=== PATIENT | female | born 1975 | race Caucasian/White ===

== ENCOUNTER → 2021-02-16 12:47 | Outpatient (CLI) | payer BC, SELFPAY ==
--- NOTE | ~2021-02-16 | US_ITS ---
EXAMINATION: US pelvic complete w TV DATE: 02/16/2021 13:15 INDICATION: Uterine mass Comparison:CT dated 09/12/2015 TECHNIQUE: Multiple transabdominal and endovaginal sonographic images of the pelvis performed. FINDINGS: The uterus measures 9.3 x 3.5 x 3.9 cm. There are multiple uterine fibroids, largest measur ing 7.6 x 7 x 6.8 cm. The endometrial complex measures 6 mm. The ovaries are not visualized. There is no free fluid in the pelvis. There are no abnormal masses seen on either side. IMPRESSION: 1. Enlarged fibroid uterus. Reviewed, dictated and finalized at location A. MAN IMPRESSION: 1. Enlarged fibroid uterus.
== END ==
DX: N85.8 Other specified noninflammatory disorders of uterus (principal); D25.9 Leiomyoma of uterus, unspecified
CPT/HCPCS: 76830; 76856

== ENCOUNTER 2021-03-03 15:42 | Outpatient (CLI) | payer BC, SELFPAY ==
--- NOTE | ~2021-03-03 | MM_ITS ---
EXAMINATION: MM screening franc BI w anuel HISTORY: Screening mammogram TECHNIQUE: Craniocaudal and mediolateral oblique 3-D tomosynthesis images were obtained and synthetic 2-D images were generated. CAD analysis was submitted and interpreted. COMPARISON: 09/22/2015 BREAST PARENCHYMAL COMPOSITION: There are scattered areas of fibroglandular density. FINDINGS: There is no evidence of suspicious mass, calcification, or architectural distortion to sugg est malignancy in either breast. There has been no suspicious interval change. IMPRESSION: 1. No mammographic evidence of malignancy. 2. Recommend routine screening mammography in one year. BI-RADS Category 1: Negative Reviewed, dictated and finalized at location A. ER ARTISAN
== END 2021-03-03 15:43 | disposition home or self-care (01) ==
LOC: ANHIMG 15:44
DX: Z12.31 Encounter for screening mammogram for malignant neoplasm of breast (principal)
CPT/HCPCS: 77063; 77067

== ENCOUNTER → 2022-06-25 10:57 | Outpatient (CLI) | payer BC, SELFPAY ==
--- NOTE | ~2022-06-25 | XR_ITS ---
Lumbosacral Spine: AP and lateral views Clinical History: Pain Findings: The normal lordotic curve is maintained. The vertebral bodies and posterior elements are i ntact. The intervertebral disc spaces are preserved. The sacroiliac joints are normally outlined. Impression: No significant abnormality. Reviewed, dictated and finalized at [facility]. Impression: No significant abnormality.
--- NOTE | ~2022-06-25 | XR_ITS ---
AP and lateral views of the right hip Clinical history: Pain Findings: No acute fracture or dislocation is seen. Osseous alignment is anatomic. The right hip and visualized right SI joint are preserved. Soft tissues are unremarkable. Impression: No significant abnormality is seen. Reviewed, dictated and finalized at [facility]. Impression: No significant abnormality is seen.
== END ==
PROVIDERS: PCP Internal Medicine; Visit Provider Nurse Practitioner Family
DX: M54.50 Low back pain, unspecified (principal); M25.551 Pain in right hip
CPT/HCPCS: 72100; 73502

== ENCOUNTER 2022-09-01 15:53 | Outpatient (CLI) | payer BC, SELFPAY ==
--- NOTE | ~2022-09-01 | XR_ITS ---
EXAMINATION: XR chest 2V Exam Date/Time: 09/01/2022 16:30 CDT HISTORY: PRODUCTIVE COUGH W/ PAINFUL INSPIRATION 10 DAYS. Comparison: None. RESULT: Lines, tubes, and devices: Biopsy clip in the left breast. Lungs and pleura: Clear. Cardiomediastinal silhouette: Normal. Other: No acute osseous or upper abdominal finding. IMPRESSION: No acute cardiopulmonary process. Reviewed, dictated and finalized at location K.
== END 2022-09-01 15:54 | disposition home or self-care (01) ==
LOC: CHSIMG 15:56
PROVIDERS: PCP Internal Medicine; Visit Provider Nurse Practitioner Family
DX: J06.9 Acute upper respiratory infection, unspecified (principal)
CPT/HCPCS: 71046

== ENCOUNTER 2023-07-27 00:02 | Day surgery (SDC) | payer BC, SELFPAY ==
[2023-07-18 15:29] VITALS: BMI 35.6
[2023-07-27 09:22] VITALS: BP 132/102; PULSE 82; RESP 22; TEMP 36.2; O2SAT 100; BMI 35.3
[2023-07-27] MEDS: LACTATED RINGERS 1,000 ML 150 ML IV CONT (09:25)
--- NOTE | 2023-07-27 09:48 | P.PNAN_ITS ---
Anes - Initial Pre Proc Eval Procedure: Operation Date: 07/27/23 10:30 Proposed Procedures p Colonoscopy - Amanuel Mcclendon MD Date/Time: 07/27/23 09:48 Surgeon: Amanuel Mcclendon MD Pre Op Diagnosis: Change in bowel habit Patient Data Age: 47 Gender: F Height: 1.68 m Weight: 99.2 kg Last Vital Signs Temp 97.2 F L 07/27/23 09:22 Pulse 82 07/27/23 09:22 Resp 22 H 07/27/23 09:22 BP 132/102 H 07/27/23 09:22 Pulse Ox 100 07/27/23 09:22 O2 Del Method Room Air 07/27/23 09:22 Allergies Allergy/AdvReac Type Severity Reaction Status Date / Time No Known Allergies Allergy Verified 07/27/23 09:21 Home Medications Medication Instructions Recorded Confirmed Type methylphenidate HCl 20 mg tablet 20 mg PO DAILY 07/18/23 07/27/23 History Patient hx anesthesia problems: none Family hx anesthesia problems: none Results Review: All pre-operative results and documents have been reviewed as part of the pre- operative evaluation. PMFSH Social History Social History Living arrangements: with family Spiritual care concerns: No Anes - Eval Final PreProcedure Day of Procedure 07/27/23 09:48 Patient weight: normal Heart: regular rate and rhythm Lungs: clear to auscultation Airway: Mallampati scale class II Neurological: alert and oriented Last oral intake: >/= 8 hours ASA classification: II Emergent: no Anesthetic plan: proceed Anesthesia type and monitoring: general GIVS and standard monitoring Results Review: All pre-operative results and documents have been reviewed as part of the pre- operative evaluation. Informed Consent: The patient's anesthetic plan and its attendant risks and benefits were discussed with the patient/family/POA. Questions were solicited and answers provided to the satisfaction of the patient/family/POA.
--- NOTE | 2023-07-27 10:10 | PM.HPGS ---
History of Present Illness History of Present Illness Consent: Risks, benefits, and alternatives have been discussed and questions answered. Patient agrees to proceed with procedure. Chief complaint: colon screening Narrative: Nichelle Chandler is a 47 year old female here for screening colonoscopy, last one about 15 years ago. Also noted that has to use restroom more often but denies diarrhea. Review of Systems Review of Systems: All systems reviewed & are unremarkable except as noted in HPI and below PMFSH Past Medical History Medical History (Updated 07/27/23 @ 10:11 by Amanuel Mcclendon MD) Colon cancer screening Social History Social History Living arrangements: with family Spiritual care concerns: No Meds Home Medications and Allergies Home Medications Medication Instructions Recorded Confirmed Type methylphenidate HCl 20 mg tablet 20 mg PO DAILY 07/18/23 07/27/23 History Allergies Allergy/AdvReac Type Severity Reaction Status Date / Time No Known Allergies Allergy Verified 07/27/23 09:21 Vital Signs Vital Signs - 24 hr 07/27/23 09:22 Temperature 97.2 F L Pulse Rate 82 Respiratory Rate 22 H Blood Pressure 132/102 H Pulse Oximetry 100 Oxygen Delivery Room Air Exam Const: General: comfortable and no acute distress HENMT: Face/Nose/Sinus: Normal nares present Eyes: General: appearance normal, both eyes and all related structures Neck: Neck: no JVD Resp: Auscultation: clear to auscultation bilaterally Cardio: Rate: regular rate Rhythm: regular rhythm GI: Inspection: non-distended GI Palp: Yes Soft to palpation Skin: General skin exam: normal color Neuro: General: gait normal Speech: normal speech Extrem: General: normal to inspection Psych: Mental Status: mental status grossly normal Assessment and Plan Assessment and plan (1) Colon cancer screening: Code(s): Z12.11 - Encounter for screening for malignant neoplasm of colon Status: Acute Assessment and Plan: colonoscopy
[2023-07-27 10:24] VITALS: BP 123/61; PULSE 92; RESP 21; O2SAT 100
[2023-07-27 10:34] VITALS: BP 114/67; PULSE 78; RESP 17; O2SAT 98
[2023-07-27 10:44] VITALS: BP 130/86; PULSE 75; RESP 16; O2SAT 99
== END 2023-07-27 11:00 | disposition home or self-care (01) ==
PROVIDERS: PCP Internal Medicine; Visit Provider Internal Medicine Gastroenterology
PROC: 0DJD8ZZ Inspection of Lower Intestinal Tract, Via Natural or Artificial Opening Endoscopic (ICD-10-PCS; CPT 45378; principal; 2023-07-27 10:30)
DX: Z12.11 Encounter for screening for malignant neoplasm of colon (principal); K64.8 Other hemorrhoids
CPT/HCPCS: 45378; J2704; J7120

== ENCOUNTER 2023-09-27 14:33 | Outpatient (CLI) | payer BC, SELFPAY ==
--- NOTE | ~2023-09-27 | MR_ITS ---
EXAMINATION: MR pelvis wo con DATE: 09/27/2023 16:04 INDICATION: Sacrococcygeal pain and lower extremity numbness TECHNIQUE: Magnetic resonance imaging (MRI) of the pelvis was performed without intravenous contrast. Sequences included axial, sagittal and coronal T1-weighted FSE and T2-weighted FS FSE. COMPARISON: CT abdomen pelvis dated 09/12/2015 FINDINGS: Bone alignment is normal. No fracture or osteonecrosis. Mild to moderate osteoarthritis at the bilate ral sacroiliac joints. There is mild increased fluid signal associated with chronic subarticular scle rosis along the inferior sacral side of the bilateral sacroiliac joint spaces. Tiny spicule at the do rsal tip of the coccyx. There is minimal increased fluid signal at the first interphalangeal disc spa ce. No hip joint effusions, bursitis or other abnormal fluid collections. There is a transverse linea r scar along the anterior pelvic wall likely related to prior section. The uterus is not irina ntified and has likely been surgically resected. Decompressed bladder and right ovary are unremarkabl e. 1 cm T2 hyperintense left ovarian cyst/follicle. This most portion of the bowels are unremarkable. IMPRESSION: 1. Tiny dorsal spiculated at the tip of the coccyx and minimal increased signal along the first inter coccygeal disc space, both findings which can be seen with coccydynia. 2. 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 Reviewed, dictated and finalized at location A. IMPRESSION: 1. Tiny dorsal spiculated at the tip of the coccyx and minimal increased signal along the first intercoccygeal disc space, both findings which can be seen wit h coccydynia. 2. 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
--- NOTE | ~2023-09-27 | MR_ITS ---
EXAMINATION: MR lumbar spine wo con DATE: 09/27/2023 15:35 INDICATION: Low back pain TECHNIQUE: Magnetic resonance imaging (MRI) of the lumbar spine was performed without intravenous con trast. Sequences included sagittal T2-weighted FSE, sagittal T2-weighted FS FSE, sagittal T1-weighted FSE, and axial T2-weighted FSE. COMPARISON: None FINDINGS: Alignment is normal. Vertebral body heights are normal. Normal marrow signal. Disc heights are inna l. The conus medullaris terminates at L2. There is normal signal in the caudal spinal cord. Paraverte bral soft tissues are unremarkable. The following disc levels are specifically discussed: T12-L1: The disc does not extend beyond the endplate margin. There is mild bilateral facet joint oste oarthritis. There is no neural foraminal stenosis. There is no central canal stenosis. L1-L2: The disc does not extend beyond the endplate margin. There is mild bilateral facet joint osteo arthritis. There is no neural foraminal stenosis. There is no central canal stenosis. L2-L3: The disc does not extend beyond the endplate margin. There is mild bilateral facet joint osteo arthritis. There is no neural foraminal stenosis. There is no central canal stenosis. L3-L4: Small disc protrusions at the bilateral foraminal zones. There is mild bilateral facet joint o steoarthritis. There is mild bilateral neural foraminal stenosis. There is no central canal stenosis. L4-L5: Small bilateral foraminal zone disc protrusions. There is mild bilateral facet joint osteoarth ritis. There is mild bilateral neural foraminal stenosis. There is no central canal stenosis. L5-S1: Disc is mildly bulging. There is mild bilateral facet joint osteoarthritis. There is no neural foraminal stenosis. There is no central canal stenosis. IMPRESSION: 1. Minimal lumbar spondylosis with multilevel mild lumbar facet osteoarthritis. Reviewed, dictated and finalized at location A.
== END 2023-09-27 14:34 ==
LOC: GOSHIMG 14:34
PROVIDERS: PCP Internal Medicine; Visit Provider Internal Medicine
DX: M53.3 Sacrococcygeal disorders, not elsewhere classified (principal)
CPT/HCPCS: 72148; 72195

== ENCOUNTER 2024-01-24 08:49 | Outpatient (RCR) | payer BC, SELFPAY ==
--- NOTE | 2024-01-24 11:39 | OPREHPOC ---
Outpatient Therapy Plan of Care This is a Multidisciplinary Plan of Care that may contain components documented by all disciplines (PT, OT, and ST.) PT Problem 1 PT Problem #1 Knowledge Deficit PT Goal 1 Goal / Goal Update The patient will be independent in a home exercise program. Target Visit 4 PT Problem 2 PT Problem #2 Pain PT Goal 1 Goal / Goal Update The patient will report no greater than 3/10 coccyx pain with sitting for 2+ hours while working. Target Visit 10 PT Problem 3 PT Problem #3 Impaired Functional Mobil PT Goal 1 Goal / Goal Update The patient will demonstrate 15% or less self perceived disability per the Back Index questionnaire. Target Visit 10 PT Problem 4 PT Problem #4 Impaired Strength PT Goal 1 Goal / Goal Update The patient will demonstrate at least 4/5 bilateral hip strength. The patient will demonstrate st least 4-/5 upper and lower abdominal strength. Target Visit 10
--- NOTE | 2024-01-24 11:39 | PTOPEVAL1 ---
Assessment and note entered by Greta Moseley, PT Evaluation Information Assessment Status Evaluation ICD-10 Condition Codes (PT) Pain in low back M54.50 Other ICD-10 Condition Codes ( M53.3 PT) Onset 01/02/24 Subjective Information Nichelle Mckinney reports she started having pain in her tailbone over the last few years. She notes the pain is gradually getting worse and she has to use a pad to sit on. 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 She notes she sits for work all day and occasionally gets tingling in her feet when standing for long periods and when driving without a pad to sit on. She denies an injury prior to the onset of pain. She finally had a MRI that showed her coccyx is bent the wrong way. Reported Pain Level Pain Score 7: Self Report Assessment PT Clinical Summary Nichelle Mckinney presents with coccyx pain with an insidous onset with worsening pain over the last year. 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 She objectively demonstrates decreased hamstring and piriformis flexibility, tenderness over the left piriformis, decreased left > right hip strength, decreased core strength , and decreased functional abilities. She will benefit from skilled PT to address these limitations. Plan of Care Interventions Electrical Stimulation,Hot Pack/Cold Pack,Manual Therapy,Neuro Re-education,Patient/Caregiver Educati,Therapeutic Activities,Therapeutic Exercise PT Services Indicated Yes Treatment Frequency and 2 times a week for 10 visits Duration These treatments will address the objective and functional deficits as defined above. The patient will be advanced safely and appropriately in order for the patient to progress towards his/her prior level of function. Additional exercises will be introduced and as well as a comprehensive home exercise program upon discharge, if needed, ?to ensure carryover of functional gains achieved in the clinic. This treatment plan has been reviewed and agreement upon by the patient.
--- NOTE | 2024-02-02 17:31 | OPREHPOC ---
Outpatient Therapy Plan of Care This is a Multidisciplinary Plan of Care that may contain components documented by all disciplines (PT, OT, and ST.) PT Problem 1 PT Problem #1 Knowledge Deficit PT Goal 1 Goal / Goal Update The patient will be independent in a home exercise program. Target Visit 4 Progress Met PT Problem 2 PT Problem #2 Pain PT Goal 1 Goal / Goal Update The patient will report no greater than 3/10 coccyx pain with sitting for 2+ hours while working. Target Visit 10 Progress Not Met PT Problem 3 PT Problem #3 Impaired Functional Mobil PT Goal 1 Goal / Goal Update The patient will demonstrate 15% or less self perceived disability per the Back Index questionnaire. Target Visit 10 Progress Not Met PT Problem 4 PT Problem #4 Impaired Strength PT Goal 1 Goal / Goal Update The patient will demonstrate at least 4/5 bilateral hip strength. The patient will demonstrate st least 4-/5 upper and lower abdominal strength. Target Visit 10 Progress Not Met
--- NOTE | 2024-02-02 17:31 | PTOPDC ---
Assessment and note entered by Greta Moseley, PT Evaluation Information Assessment Status Discharge ICD-10 Condition Codes (PT) Pain in low back M54.50 Other ICD-10 Condition Codes ( M53.3 PT) Onset 01/02/24 Subjective Information Nichelle reports her tailbone pain has not changed much and that she can perform stretches at home. She does note the stretches she learned have helped her pain a little but she is still taking her special pillow for sitting and driving. Reported Pain Level Pain Score 6: Self Report Assessment PT Clinical Summary Nichelle Mckinney has completed 4 skilled PT visits for coccyx pain. She is reporting no overall change in pain and feels she can perform stretches and exercises on her own. She continues to have tenderness over the coccyx and in bilateral gluteal muscles, decreased piriformis flexibility, decreased hip strength, and difficulty sitting and driving. She may benefit from pelvic floor PT and was referred to her PCP to get a referral to a pelvic health specialist. She is discharged from traditional PT. Plan of Care PT Services Indicated No
--- NOTE | 2024-03-27 14:50 | PCPTNOTE ---
03/27/24: See discharge note from 02/02/24. -Greta Moseley, PT
== END 2024-02-06 17:15 | disposition home or self-care (01) ==
LOC: CHSPT 08:49
DX: M54.50 Low back pain, unspecified (principal); M53.3 Sacrococcygeal disorders, not elsewhere classified
CPT/HCPCS: 97110; 97140; 97161

== ENCOUNTER 2024-06-26 15:43 | Outpatient (CLI) | payer BC, SELFPAY ==
--- NOTE | ~2024-06-26 | XR_ITS ---
HISTORY: LAT RT pain, possible injury from lifting 2.5lb weights COMPARISON: None TECHNIQUE: 2 views of the right shoulder were performed FINDINGS: No acute fracture. The glenohumeral and acromioclavicular joint space is maintained The visualized portion of the adjacent right lung is clear. The humeral head is well seated within the glenoid fossa. IMPRESSION: No acute fracture or anterior dislocation. Reviewed, dictated and finalized at location A.
--- OUTSIDE RECORDS SUMMARY | 2024-06-26 17:36 | XMS_ITS | Clinical Summary ---
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 02/03/2024 Active estradioL (CLIMARA) 0.05 mg/24 hr patch Apply 1 Patch to skin as directed every 7 days. 4 Patch 2 06/12/2024 Active Active Problems Problem Noted Date Diagnosed Date S/P laparoscopic hysterectomy 08/12/2023 Encounters Date Type Department Care Team Description 06/18/2024 External Device Data STL ABSTRACTION Provider, Abstract 06/16/2024 External Device Data STL ABSTRACTION Provider, Abstract 06/15/2024 External Device Data STL ABSTRACTION Provider, Abstract 06/12/2024 1:50 PM REMEDIAL MASSEUR Office Visit [facility] - [id number] [facility] [address] [id number] Diamond Nascimento MD Menopausal symptoms (Primary Dx) from Last 3 Months Family History Medical History Relation Name Comments Diabetes Father Hypertension Father Hypertension Mother Relation Name Status Comments Father Mother Social History Tobacco Use Types Packs/Day Years Used Date Smoking Tobacco: Never Smokeless Tobacco: Never Tobacco Cessation:Counseling Given: Not Answered Alcohol Use Standard Drinks/Week Comments Yes 0 (1 standard drink = 0.6 oz pur e alcohol) 0-1/MONTH Feeling Safe Answer Date Recorded Are you in a relationship wi th someone who hurts you emotionally and/or physically? No 08/11/2023 Comments No Sex and Gender Information Value Date Recorded Sex Assigned at Not on file Legal Sex Female 10:12 PM CDT Gender Identity Not on file Sexual Orientation Not on file Last Filed Vital Signs Vital Sign Reading Time Taken Comments Blood Pressure 114/62 06/12/2024 1:44 PM REMEDIAL MASSEUR Pulse 83 08/12/2023 3:50 AM CDT Temperature 36.9 C (98.4 F) 08/12/2023 7:59 AM CDT Respiratory Rate 16 08/12/2023 7:59 AM CDT Oxygen Saturation 99% 08/12/2023 7:59 AM CDT Inhaled Oxygen Concentration - - Weight 79.8 kg (176 lb) 06/12/2024 1:44 PM REMEDIAL MASSEUR Height 167.6 cm (5' 6 ) 06/12/2024 1:44 PM REMEDIAL MASSEUR Body Mass Index 28.41 06/12/2024 1:44 PM REMEDIAL MASSEUR Plan of Treatment Upcoming Encounters Date Type Department Care Team (Late st Contact Info) Description 09/25/2024 3:30 PM CDT Office Visit [facility] - [address] [place] [id number] Diamond Nascimento MD [address] [place] [id number] Health Maintenance Due Date Last Done Comments Pre-Diabetes and Diabetes Screening 1974 HEPATITIS B VACCINES (1 of 3 - 19+ 3-dose series) 1993 DTAP/TDAP/TD VACCINES (2 - T d or Tdap) 09/27/2019 09/26/2009 COLORECTAL SCREENING 12/12/2019 Colorectal Cancer Screening 12/12/2019 FIT-DNA Q 3 years 12/12/2019 FIT/FOBT Q 1 year 12/12/2019 Flex Sig/CT Colonography Q 5 years 12/12/2019 BREAST CANCER SCREENING 03/03/2022 03/03/2021 INFLUENZA VACCINE (#1) 2023 Preventative Visit- Commercial 04/11/2024 02/03/2021 , 12/26/2019 CERVICAL CANCER SCREENING 05/25/20262023, 02/03/2021, 01/11/2018 (Previously completed) Procedures Procedure Name Priority Date/Time Associated Diagnosis Comments CERV/VAG CYTO AGE BASED SCREEN PAP Routine 05/25/2023 11:50 AM REMEDIAL MASSEUR Screening for cervical cancer MAMMO SCREEN BILAT W OR WO CAD Routine 03/03/2021 Encounter for screening mammogram for malignant neoplasm of breast from Last 3 Months or Most Recently Relevant to Health Maintenance Results * CERV/VAG CYTO AGE BASED SCREEN PAP (05/25/2023 11:50 AM REMEDIAL MASSEUR) COMMENT (PAP): [facility] [place] Comment: This order for age-based cervical cancer and STI screening follows ACOG guidelines(PB 168, 140, MLB040). See individual assays for performing site location. CLINICAL INFORMATION [facility] Comment:None given LAST MENSTRUAL PERIOD [facility] [place] Comment:NONE GIVEN PREV PAP: [facility] [place] Comment:NONE GIVEN PREV BX: [facility] [place] Comment:NONE GIVEN SOURCE [facility] [place] Comment:Endocervix ADEQUACY: [facility] [place] Comment: Satisfactory for evaluation. Endocervical/transformation zone component present. Age and/or menstrual status not provided PAP INTERP [facility] [place] Comment: Cytology Results: Negative for intraepithelial lesion or malignancy. COMMENT (PAP TEST) [facility] [place] Comment: This Pap test has been evaluated with computer assisted technology. RESPOOLER: Erika Wilson Comment: DDS, CT(ASCP) CT screening location: [place] [address] [place] [address] EXPLANATORY NOTE [facility] Comment: EXPLANATORY NOTE: The Pap is a screening test for cervical cancer. It is not a diagnostic test and is subject to false negative and false positive results. It is most reliable when a satisfactory sample, regularly obtained, is submitted with relevant clinical findings and history, and when the Pap result is evaluated along with historic and current clinical information. HPV E6/E7 Not Detected Not Detected [facility] [place] Comment: Methodology: Agricultural Agent-Mediated Amplification This assay detects E6/E7 viral messenger RNA (mRNA) from 14 high-risk HPV types (16,18,31,33,35,39,45,51,52,56,58,59,66,68). Cervical sources are required for HPV testing. If a vaginal source from a patient who has had a total hysterectomy with removal of cervix was submitted, please contact the testing laboratory for alternative testing options. For additional information, please refer to http://education.Shopalytic/faq/GDK493g3 (This link if provided for information/ educational purposes only.) Test Performed at: [facility] [address] [place] [address] Claudia Denny MD SL Genital SWAB OF ENDOCERVIX / Unknown 05/25/2023 11:50 AM REMEDIAL MASSEUR 05/25/2023 11:47 PM REMEDIAL MASSEUR Diamond Nascimento MD PATHOLOGY/CYTOLOGY ORDERABLES Final Result Performing Organization Address City/State/[facility] Co de Phone Number [facility] [phone] [facility] [address] [place] [address] * MAMMO SCREEN BILAT W OR WO CAD (03/03/2021) Anatomical Region Laterality Modality Breast Bilateral Other us Diamond Nascimento MD MAMMO ORDERABLES Final Result from Last 3 Months or Most Recently Relevant to Health Maintenance Insurance [facility] [employer] RX [facility] [employer] Advance Directives For more information, please contact: [phone] * Full Code (Latest Code Status on File) Date Activated Date Inactivated Comments 08/11/2023 11:51 AM 08/12/2023 12:26 PM * Full Code Date Activated Date Inactivated Comments 08/11/2023 5:47 AM 08/11/2023 11:51 AM
--- OUTSIDE RECORDS SUMMARY | 2024-06-26 17:36 | XMS_ITS | Clinical Summary ---
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 Gender Identity Not on file Sexual Orientation Not on file Plan of Treatment Health Maintenance Due Date Last Done Comments Hepatitis C Virus (HCV) Screening 1974 Hepatitis B Immunization (1 of 3 - 19+ 3-dose series) 1993 Pap Smear 12/12/1995 Cervical Cancer Screening (CCS) 2004 HPV/Cotest 2004 Discussion re Starting/Frequency of Mammograms 2014 Colonoscopy 12/12/2019 Colorectal Cancer Screening 12/12/2019 Influenza Immunization (#1) 12/11/202306/2019, 12/31/2011 SARS-COV-2 Immunization ( season) 2023 Respiratory Syncytial Virus (RSV) Immunization (Adult) (1 - 1-dose 75+ series) 2049 DTaP/Tdap/Td Immunization Discontinued 12/31/2011 TdaP Immunization Completed 12/31/2011 Meningococcal Immunization (ACWY) Aged Out No longer eligible based on patient's age to complete this topic Pneumococcal Immunization Combined Aged Out No longer eligible based on patient's age to complete this topic Rotavirus Immunization Aged Out No lo nger eligible based on patient's age to complete this topic
--- OUTSIDE RECORDS SUMMARY | 2024-06-26 17:36 | XMS_ITS | Referral Summary ---
Author Organization [facility] [address] Address [address] [place] [address] Care Team Providers Care In Home Baby Sitter Name Role Phone Sushant Lama MD Primary Care Provider [phone] Allergies No known active allergies Medications SEMAGLUTIDE SUBQ 4 Active celecoxib (CeleBREX) 100 mg capsule Take 1 capsule (100 mg total) by mouth 2 (two) times a day 60 capsule 4 Active Additional Information Patient not taking.Reported on 02/29/2024 methylphenidat e HCl (RITALIN) 20 mg tabletIndicati ons:hypersomni a Take 1 tablet (20 mg total) by mouth daily 30 tablet 5 07/22/19 25 Active methylphenidat e HCl (RITALIN) 20 mg tabletIndicati ons:hypersomni a Take 1 tablet (20 mg total) by mouth daily 30 tablet 5 06/16/19 25 Discontin ued(Reord er) Active Problems Problem Noted Date Diagnosed Date Obesity 06/07/2012 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 Gender Identity Not on file Sexual Orientation Not on file Last Filed Vital Signs Vital Sign Reading Time Taken Comments Blood Pressure 117/86 02/29/2024 1:34 PM ASSESSMENT TECHNICIAN Pulse 76 02/29/2024 1:34 PM ASSESSMENT TECHNICIAN Temperature 36.4 C (97.5 F) 02/29/2024 1:34 PM ASSESSMENT TECHNICIAN Respiratory Rate 14 02/29/2024 1:34 PM ASSESSMENT TECHNICIAN Oxygen Saturation 97% 02/29/2024 1:34 PM ASSESSMENT TECHNICIAN Inhaled Oxygen Concentration - - Weight 88.9 kg (196 lb) 01/02/2024 2:50 PM CDT Height 167.6 cm (5' 6 ) 01/02/2024 2:50 PM CDT Body Mass Index 31.64 01/02/2024 2:50 PM CDT Plan of Treatment Not on file Goals Goal Patient Goal Type Associated Problems Recent Progress Patient-Stated? Author CCM Chronic Pain Care Plan Chronic Care Management Rebecca Tompkins RN Note: Problem: Chronic Pain Goals: 1. Minimize further functional decline 2. Maximize quality of life 3. Control pain Strategies: - Activity/exercise program recommendation - Conservative stepwise pain medicine strategy with multi-disciplinary approach - Recommend healthy lifestyle strategies and compensatory methods as needed Insurance Care Teams In Home Baby Sitter Relationship Specialty Start Date End Date Sushant Lama MD PCP - General 11/16/16
--- OUTSIDE RECORDS SUMMARY | 2024-06-26 17:36 | XMS_ITS | Clinical Summary ---
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 Surgical History Surgery Date Site/Laterality Comments HYSTERECTOMY august 2023 COMBINED REDUCTION MAMMAPLASTY W/ ABDOMINOPLASTY REFRACTIVE SURGERY Medical History Medical History Date Comments Personal history of other di seases of the nervous system and sense organs History of sleep a pnea - (Added by TW Conv) Obesity Obesity - (Added by TW Conv) Joint pain this year Low back pain 2020 Family History Medical History Relation Name Comments Hypertension Mother Ursula Family history of hypertension - (Added by TW Conv) Relation Name Status Comments Mother Ursula Social History Tobacco Use Types Packs/Day Years [...] on file Legal 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 Gender Identity Not on file Sexual Orientation Not on file Obstetrics History Last Filed Vital Signs Vital Sign Reading Time Taken Comments Blood Pressure 117/86 02/29/2024 1:34 PM SOLDERER ASSEMBLY REPAIR Pulse 76 02/29/2024 1:34 PM SOLDERER ASSEMBLY REPAIR Temperature 36.4 C (97.5 F) 02/29/2024 1:34 PM SOLDERER ASSEMBLY REPAIR Respiratory Rate 14 02/29/2024 1:34 PM SOLDERER ASSEMBLY REPAIR Oxygen Saturation 97% 02/29/2024 1:34 PM SOLDERER ASSEMBLY REPAIR Inhaled Oxygen Concentration - - Weight 88.9 kg (196 lb) 01/02/2024 2:50 PM CDT Height 167.6 cm (5' 6 ) 01/02/2024 2:50 PM CDT Body Mass Index 31.64 01/02/2024 2:50 PM CDT Plan of Treatment Health Maintenance Due Date Last Done Comments Colon Cancer Screening-Colonoscopy 1974 Depression Screening 1974 Hepatitis C Screening 1974 DTaP/Tdap/Td Vaccine (1 - Tdap) 1985 Hepatitis B Screening 1992 Regular Well Visit/Exam 18-64 1992 Breast Cancer Screening-Mammogram 03/03/2022 021 Influenza Vaccine (#1) 2023 Pneumococcal vaccine <65 Aged Out No longer eligible based on patient's age to complete this topic Goals Goal Patient Goal Type Associated Problems Recent Progress Patient-Stated? Author CCM Chronic Pain Care Plan Chronic Care Management Rebecca Tompkins, RN Note: Problem: Chronic Pain Goals: 1. Minimize further functional decline 2. Maximize quality of life 3. Control pain Strategies: - Activity/exercise program recommendation - Conservative stepwise pain medicine strategy with multi-disciplinary approach - Recommend healthy lifestyle strategies and compensatory methods as needed Insurance Care Teams Sign Builder Supervisor Relationship Specialty Start Date End Date Sushant Lama MD PCP - General 11/16/16
--- OUTSIDE RECORDS SUMMARY | 2024-06-26 17:36 | XMS_ITS | Encounter Summary ---
Author Organization [facility] Address [address] [place] [address] Care Team Providers Care Director Hris Name Role Phone Unavailable Primary Care Provider Unavailabl e Reason for Visit * Reason Comments Medication Refill Encounter Details Date Type Department Care Team (Late Contact Info) Description 05/27/2019 Refill [facility] - [address] [place] [phone] Diamond Nascimento MD [address] [place] [id number] Social History Tobacco Use Types Packs/Day Years Used Date Smoking Tobacco: Never Comments Unknown Sex and Gender Information Value Date Recorded Sex Assigned at Not on file Legal Sex Female 10:12 PM CDT Gender Identity Not on file Sexual Orientation Not on file documented as of this encounter Plan of Treatment Upcoming Encounters Date Type Department Care Team (Late st Contact Info) Description 09/25/2024 3:30 PM CDT Office Visit [facility] - [address] [place] [phone] Diamond Nascimento MD [address] [place] [id number] documented as of this encounter Visit Diagnoses Not on filedocumented in this encounter
== END 2024-06-26 15:44 | disposition home or self-care (01) ==
PROVIDERS: PCP Internal Medicine; Visit Provider Internal Medicine
DX: M25.511 Pain in right shoulder (principal)
CPT/HCPCS: 73030

== ENCOUNTER 2024-06-29 16:21 | Outpatient (RCR) | payer BC, SELFPAY ==
--- NOTE | 2024-06-29 17:44 | OPREHPOC ---
Outpatient Therapy Plan of Care This is a Multidisciplinary Plan of Care that may contain components documented by all disciplines (PT, OT, and ST.) PT Problem 1 PT Problem #1 Knowledge Deficit PT Goal 1 Goal / Goal Update Independent with HEP. Target Visit 4 PT Problem 2 PT Problem #2 Pain PT Goal 1 Goal / Goal Update Pt to report no worse than 5/10 pain with activity . Target Visit 12 PT Problem 3 PT Problem #3 Impaired Strength PT Goal 1 Goal / Goal Update Improve R shoulder strength to 4+/5. Target Visit 14 PT Problem 4 PT Problem #4 Impaired Range of Motion PT Goal 1 Goal / Goal Update Improve active R shoulder flexion to 170 degress. Improve active R shoulder abduction to 150 degrees . Improve functional reach behind the head to T2. Improve functional reach behind the back to T10. Target Visit 12 PT Problem 5 PT Problem #5 Impaired Functional Mobility PT Goal 1 Goal / Goal Update Pt to be able to comb her hair without compensating with cervical lateral flexion or lateral trunk lean. Pt to be able to write and use her mouse at work for 30 minutes before onset of R shoulder pain. Pt to report 20% decrease in Quick DASH score. Target Visit 12
--- NOTE | 2024-06-29 17:45 | PTOPEVAL1 ---
Assessment and note entered by Renetta Robb, PT Evaluation Information Assessment Status Evaluation ICD-10 Condition Codes (PT) Pain in right shoulder M25.511 Onset 06/01/24 Subjective Information Pt reports onset of R shoulder pain 1 month ago when lifting 2lb weights. Pain is localized to the R shoulder is aggravated by any movement including lifting the arm and writing. She experiences pain at work when reaching forward for her mouse at her computer, and she reports that any time her arm is unsupported in any way it hurts. She's also unable to lie on her R side, and even when lying on her left side her arm dangles in front of her and that also hurts. She got an x- ray recently that showed nothing. She has tried icing her shoulder and that has helped slightly. She has also been taking an oral steroid since yesterday and she thinks that helped but she may have gotten overconfident and did to much yesterday and it still hurts. She has great difficulty putting on a jacket and is unable to put on a bra and also has difficulty with washing and combing her hair. Reported Pain Level Pain Score 7: Self Report Assessment PT Clinical Summary Mrs. Chandler is a 48 yo female entering the clinic with R shoulder pain that occurred after lifting a 2lb weight approx. one month ago. Her pain is located in the deltoid region of the R shoulder and increases with any active movement of the arm including reaching forward and laterally, combing her hair, and reaching behind her back to put on a jacket or a bra. She demonstrates moderate weakness of the shoulder as well as pain with active ROM and resistive testing. Pain is also reproduced with empty and full can testing indicating likely rotator cuff pathology. She will benefit from skilled physical therapy intervention to improve on these deficits and be able to perform daily functional and work activities with less pain. Plan of Care Interventions Electrical Stimulation,Hot Pack/Cold Pack,Manual Therapy,Neuro Re-education,Patient/Caregiver Education,Therapeutic Activities,Therapeutic Exercise,Self-Care/Home Management Other Interventions TPDN PT Services Indicated Yes Treatment Frequency and 3x/week for 9 visits Duration These treatments will address the objective and functional deficits as defined above. The patient will be advanced safely and appropriately in order for the patient to progress towards his/her prior level of function. Additional exercises will be introduced and as well as a comprehensive home exercise program upon discharge, if needed, ?to ensure carryover of functional gains achieved in the clinic. This treatment plan has been reviewed and agreement upon by the patient.
--- NOTE | 2024-07-18 17:39 | OPREHPOC ---
Outpatient Therapy Plan of Care This is a Multidisciplinary Plan of Care that may contain components documented by all disciplines (PT, OT, and ST.) PT Problem 1 PT Problem #1 Knowledge Deficit PT Goal 1 Goal / Goal Update Independent with HEP. Target Visit 4 Progress Met PT Problem 2 PT Problem #2 Pain PT Goal 1 Goal / Goal Update Pt to report no worse than 5/10 pain with activity . Target Visit 12 Progress Met PT Problem 3 PT Problem #3 Impaired Strength PT Goal 1 Goal / Goal Update Improve R shoulder strength to 4+/5. Target Visit 14 Progress Met PT Problem 4 PT Problem #4 Impaired Range of Motion PT Goal 1 Goal / Goal Update Improve active R shoulder flexion to 170 degress. Improve active R shoulder abduction to 150 degrees . Improve functional reach behind the head to T2. Improve functional reach behind the back to T10. Target Visit 12 Progress Met PT Problem 5 PT Problem #5 Impaired Functional Mobility PT Goal 1 Goal / Goal Update Pt to be able to comb her hair without compensating with cervical lateral flexion or lateral trunk lean. Pt to be able to write and use her mouse at work for 30 minutes before onset of R shoulder pain. Pt to report 20% decrease in Quick DASH score. Target Visit 12 Progress Met
--- NOTE | 2024-07-18 17:39 | PTOPDC ---
Assessment and note entered by Renetta Robb, PT Evaluation Information Assessment Status Discharge ICD-10 Condition Codes (PT) Pain in right shoulder M25.511 Onset 06/01/24 Subjective Information Nichelle reports her shoulder feels great today and hasn't had any pain for the last two days. She's continued to rest her shoulder and has tried not to over do it at home and at work. She was able to mow the grass today without difficulty and has been independent with her HEP. She will be travelling for the next week and feels like she can manage her pain and strengthening on her own at this point. Reported Pain Level Pain Score 0: Self Report Assessment PT Clinical Summary Mrs. Chandler has attended 9 total skilled physical therapy visits addressing R shoulder pain . She has had a dramatic improvement in her R shoulder pain and function this week and no longer has pain at rest. She notes slight pain when moving her shoulder the wrong way but she has found effective ways to position her arm at work to prevent onset of pain. She has been able to perform functional activities around the house like cooking and mowing the lawn without pain. She has made excellent improvements in her shoulder AROM and strength, and she has been independent and compliant with her HEP. She has met all therapeutic goals set for her and therefore skilled PT intervention is no longer indicated. Plan of Care PT Services Indicated No
== END 2024-07-18 20:00 | disposition home or self-care (01) ==
LOC: CHSPT 16:21
PROVIDERS: PCP Internal Medicine; Visit Provider Internal Medicine
DX: M25.511 Pain in right shoulder (principal)
CPT/HCPCS: 97014; 97110; 97112; 97150; 97161; G0283